=== PATIENT | female | born 1980 | race Caucasian/White ===

== ENCOUNTER 2024-06-02 12:20 | Day surgery (SDC) | payer OTHER ==
[2024-06-02] MEDS ORDERED: Decadron 4 MG INJ IV ONE (12:21)
[2024-06-02] MEDS ORDERED: Sodium Chloride 0.9(Preservative Free) 10 ML IJ ONE (12:21)
[2024-06-02] MEDS ORDERED: LIDOCAINE HCL 1% 50 MG/5 ML VL PF IJ ONE (12:21)
[2024-06-02 12:37] LABS: HCG URINE TEST NEGATIVE (NEGATIVE)
[2024-06-02] MEDS ORDERED: Lactated Ringers 1,000 ML IV ONE (13:50)
[2024-06-02] MEDS ORDERED: DIPRIVAN 200 MG/20 ML IV ONE (14:01)
--- NOTE | 2024-06-02 14:59 | XRAY ---
Indication: Right piriformis injection. Intraoperative fluoroscopy provided for 6 seconds. Single digital spot image submitted for interpretation demonstrates posterior needle tip projecting over the right piriformis. Small amount of contrast injected for needle tip placement. Correlate with intraoperative findings/report.
--- NOTE | 2024-06-02 14:59 | XRAY ---
Indication: Right L4-S1 transforaminal LILIANA. Intraoperative fluoroscopy provided for 19 seconds. 5 digital spot image submitted for interpretation demonstrates posterior needle tips projecting over the expected right L4 and L5 nerve roots. Small amount of contrast injected for needle tip placement. Correlate with intraoperative findings/report.
--- NOTE | 2024-06-02 16:52 | XRAY ---
19 seconds of fluoroscopy was used in surgery for a right L4-S1 transforaminal LILIANA.
--- NOTE | 2024-06-02 16:52 | XRAY ---
6 seconds of fluoroscopy was used in surgery for a right piriformis injection.
== END 2024-06-02 14:27 | disposition home or self-care (01) ==
LOC: SDC-PAIN 12:20
PROVIDERS: ATTEND Psychiatry & Neurology Pain Medicine
DX: M79.18 Myalgia, other site (principal); M54.16 Radiculopathy, lumbar region
CPT/HCPCS: 20552; 64483; 64484; 72100; 72170; 77002; 77003; 81025; J1100; J2001; J2704; Q9966

== ENCOUNTER 2024-08-11 14:54 | Day surgery (SDC) | payer OTHER ==
[2024-08-11] MEDS ORDERED: Decadron 4 MG INJ IV ONE (14:55)
[2024-08-11] MEDS ORDERED: Sodium Chloride 0.9(Preservative Free) 10 ML IJ ONE (14:55)
[2024-08-11 15:19] LABS: HCG URINE TEST NEGATIVE (NEGATIVE)
[2024-08-11] MEDS ORDERED: Lactated Ringers 1,000 ML IV ONE (16:07)
[2024-08-11] MEDS ORDERED: DIPRIVAN 200 MG/20 ML IV ONE (16:27)
[2024-08-11] MEDS ORDERED: MORPHINE SULFATE 2 MG INJ ONE ×2 (16:43→17:03)
--- NOTE | 2024-08-11 18:59 | XRAY ---
Indication: Right L4-S1 transforaminal LILIANA. Intraoperative fluoroscopy provided for 24 seconds. 3 digital spot image submitted for interpretation demonstrates posterior needle tips projecting over right L4 and L5 nerve roots. Small amount of contrast injected for needle tip placement. Correlate with intraoperative findings/report.
--- NOTE | 2024-08-12 09:30 | XRAY ---
24 seconds of fluoroscopy was used in surgery for a right L4-S1 transforaminal LILIANA.
== END 2024-08-11 17:20 ==
LOC: SDC-PAIN 14:54
PROVIDERS: ATTEND Psychiatry & Neurology Pain Medicine
DX: M54.16 Radiculopathy, lumbar region (principal)
CPT/HCPCS: 64483; 64484; 72100; 77003; 81025; J1100; J2270; J2704; Q9966